=== PATIENT | female | born 1955 | race Caucasian/White ===

== ENCOUNTER 2016-07-31 16:20 | Emergency (ER) | payer SELFPAY ==
[~2016-07-31] VITALS: Ht 154.9 cm; Wt 42.6 kg
[2016-07-31 16:30] VITALS: BP 137/89
[2016-07-31] MEDS ORDERED: SULF1TAB24 PO (16:43)
--- NOTE | 2016-07-31 16:43 | PHYS DOC ---
Past Medical History Past Medical History: COPD Past Surgical History: Hysterectomy Alcohol Use: Sober Drug Use: None Adult General Chief Complaint Chief Complaint: ELBOW PROBLEM [facility] HPI Patient is a 60 year old female presents to the emergency department with pain to the right elbow. Patient states she has had this for 2 weeks. She states it is hard and tender with no drainage from the site, family member tried to khushi the area without success. Area of tenderness is the side of a pea, slight redness noted no warmth noted. Patient with full ROM noted to the elbow. Review of Systems Review of Systems Constitutional: Denies fever or chills [] Eyes: Denies change in visual acuity, redness, or eye pain [] HENT: Denies nasal congestion or sore throat [] Respiratory: Denies cough or shortness of breath [] Cardiovascular: No additional information not addressed in HPI [] GI: Denies abdominal pain, nausea, vomiting, bloody stools or diarrhea [] : Denies dysuria or hematuria [] Musculoskeletal: Denies back pain or joint pain [] Integument: Denies rash or skin lesions. Pea size area to right elbow tender Neurologic: Denies headache, focal weakness or sensory changes [] Endocrine: Denies polyuria or polydipsia [] Allergies Allergies Allergies Coded Allergies Type Severity Reaction Last Updated Verified Penicillins Allergy Intermediate 07/31/16 Yes Physical Exam Physical Exam Constitutional: Well developed, well nourished, no acute distress, non-toxic appearance. [] HENT: Normocephalic, atraumatic, bilateral external ears normal, oropharynx moist, no oral exudates, nose normal. [] Eyes: PERRLA, EOMI, conjunctiva normal, no discharge. [] Neck: Normal range of motion, no tenderness, supple, no stridor. [] Cardiovascular:Heart rate regular rhythm, no murmur [] Lungs & Thorax: Bilateral breath sounds clear to auscultation [] Skin: Warm, dry, no erythema, no rash. Right elbow with a pea size area that is encapsulated and moveable tenderness noted, slight redness noted no warmth noted Back: No tenderness Extremities: No tenderness, no cyanosis, no clubbing, ROM intact, no edema. [] Neurologic: Alert and oriented X 3, normal motor function, normal sensory function, no focal deficits noted. [] Psychologic: Affect normal, judgement normal, mood normal. [] Current Patient Data Vital Signs Vital Signs Date Time Temp Pulse Resp B/P (MAP) Pulse Ox O2 Delivery O2 Flow Rate FiO2 07/31/16 16:30 98.3 106 18 91 Room Air 98.3 EKG EKG [] Radiology/Procedures Radiology/Procedures [] Course & Med Decision Making Course & Med Decision Making Pertinent Labs and Imaging studies reviewed. (See chart for details) Patient has a history of COPD and has not wore oxygen for the last 2 years. Patient states she moved here 2 years and has not found a doctor. Denies SOA, patient continues to smoke. Patient will be discharged with bactrim. Recommended warm moist packs to right elbow 4 times a day for 20 minutes at a time. Recommended followup with PCP or return to emergency for re-evaluation in 3 days.Signs and symptoms to return to emergency department has been provided. Patient will be provided with doctor list. [] Dragon Disclaimer Dragon Disclaimer This electronic medical record was generated, in whole or in part, using a voice recognition dictation system. Departure Departure Impression: Primary Impression: Abscess Disposition: 01 HOME, SELF-CARE Condition: STABLE Patient Instructions: Abscess Additional Instructions: Activity as tolerated Medication as prescribed Tylenol or Ibuprofen for pain and discomfort Warm moist soaks to the elbow 4 times a day for 20 minutes at a time Followup with primary care provider in 3-5 days Return to emergency department as needed for signs and symptoms that become worse Scripts Sulfamethoxazole/Trimethoprim (BACTRIM DS TABLET) 1 Each Tablet 1 TAB PO BID, #20 TAB Prov: CATRACHITA BEY APRN 07/31/16 CATRACHITA BEY APRN July 31, 2016 16:43
== END 2016-07-31 16:50 | disposition home or self-care (01) ==
LOC: ER 16:20
DX: L02.413 Cutaneous abscess of right upper limb (principal); J44.9 Chronic obstructive pulmonary disease, unspecified; Z88.0 Allergy status to penicillin
CPT/HCPCS: 99283

== ENCOUNTER 2017-07-31 12:18 | Emergency (ER) | payer SELFPAY ==
[2017-07-31] MEDS: predniSONE 20 MG TABLET PO (13:11)
[2017-07-31] MEDS: BENZONATATE 100 MG CAPSULE. PO (13:12)
[2017-07-31] MEDS: IPRATRPIUM/ALBUTEROL 0.5/2.5MG 3 ML NEBU. NEB ×2 (13:34→13:57)
[2017-07-31] MEDS ORDERED: IPRATRPIUM/ALBUTEROL 0.5/2.5MG 3 ML NEBU. NEB (14:30)
== END 2017-07-31 14:33 | disposition left against medical advice (07) ==
LOC: ER 14:33
DX: J44.1 Chronic obstructive pulmonary disease with (acute) exacerbation (principal); J20.9 Acute bronchitis, unspecified; J02.9 Acute pharyngitis, unspecified; F17.210 Nicotine dependence, cigarettes, uncomplicated; Z90.710 Acquired absence of both cervix and uterus; Z53.29 Procedure and treatment not carried out because of patient's decision for other reasons
CPT/HCPCS: 71046; 94640; 99284; J7512; J7620

== ENCOUNTER 2017-11-06 01:05 | Emergency (ER) | payer SELFPAY ==
[~2017-11-06] VITALS: Ht 154.9 cm; Wt 40.4 kg
[~2017-11-06 01:05] MED LIST: AZIT250T PO; BENZ100C PO; PRED50TA PO; SULF1TAB24 PO; VENTOLIN HFA18 GM INH
[2017-11-06 02:16] LABS: BASO # 0.1 x10^3/uL (0.0-0.2); BASO % 1 % (0-3); EOS # 0.1 x10^3/uL (0.0-0.7); EOS % 1 % (0-3); HEMATOCRIT 42.6 % (36.0-47.0); HEMOGLOBIN 14.6 g/dL (12.0-15.5); LYMPH # 1.9 x10^3/uL (1.0-4.8); LYMPH % 20 % (24-48); MEAN CORPUSCULAR HEMOGLOBIN 32 pg (25-35); MEAN CORPUSCULAR HGB CONC 34 g/dL (31-37); MEAN CORPUSCULAR VOLUME 94 fL (79-100); MONO # 0.5 x10^3/uL (0.0-1.1); MONO % 5 % (0-9); NEUT % 73 % (31-73); PLATELET COUNT 204 x10^3/uL (140-400); RED BLOOD COUNT 4.53 x10^6/uL (3.50-5.40); RED CELL DISTRIBUTION WIDTH 13.2 % (11.5-14.5); WHITE BLOOD COUNT 9.5 x10^3/uL (4.0-11.0)
[2017-11-06 02:29] LABS: CALCIUM 8.9 mg/dL (8.5-10.1); CREATININE 0.8 mg/dL (0.6-1.0); GFR 72.4; POTASSIUM 3.7 mmol/L (3.5-5.1)
[2017-11-06] MEDS ORDERED: ALBU2.5V5 NEB (02:34)
[2017-11-06 02:35] LABS: ALBUMIN 3.7 g/dL (3.4-5.0); ALBUMIN/GLOBULIN RATIO 1.1 (1.0-1.7); TOTAL BILIRUBIN 0.4 mg/dL (0.2-1.0)
[2017-11-06 02:57] VITALS: BP 129/86
--- NOTE | 2017-11-06 03:00 | PHYS DOC ---
Past Medical History Past Medical History: COPD, Hypertension Past Surgical History: Hysterectomy Alcohol Use: Sober Drug Use: None Adult General Chief Complaint Chief Complaint: HIP PAIN HPI HPI Patient is a 62 year old female brought in by ambulance with hip pain. She landed on her right hip because a cat jumped at her and she fell down. Mild elbow pain no head trauma no loss of consciousness no chest pain symptoms are moderate worsening with time Review of Systems Review of Systems Constitutional: Denies fever or chills [] Eyes: Denies change in visual acuity, redness, or eye pain [] CHRONIC SOB Cardiovascular: No additional information not addressed in HPI [] GI: Denies abdominal pain, nausea, vomiting, bloody stools or diarrhea [] Neurologic: Denies headache, focal weakness or sensory changes [] Endocrine: Denies polyuria or polydipsia [] All other systems were reviewed and found to be within normal limits, except as documented in this note. Allergies Allergies Allergies Coded Allergies Type Severity Reaction Last Updated Verified Penicillins Allergy Intermediate 07/31/16 Yes Physical Exam Physical Exam Constitutional: Well developed, well nourished, no acute distress, non-toxic appearance. [] HENT: Normocephalic, atraumatic, bilateral external ears normal, oropharynx moist, no oral exudates, nose normal. [] Eyes: PERRLA, EOMI, conjunctiva normal, no discharge. [] Neck: Normal range of motion, no tenderness, supple, no stridor. [] Cardiovascular:Heart rate regular rhythm, no murmur [] Lungs & Thorax: Bilateral breath sounds clear to auscultation [] Abdomen: Bowel sounds normal, soft, no tenderness, no masses, no pulsatile masses. [] Skin: Warm, dry, no erythema, no rash. [] Back: No tenderness, no CVA tenderness. EXT [] TTP NOTED RIGHT HIP NO DEFORMITY PULSE INTACT IN THAT FOOT. ABRASION ELBOW FULL ROM. Neurologic: Alert and oriented X 3, normal motor function, normal sensory function, no focal deficits noted. [] Psychologic: Affect normal, judgement normal, mood normal. [] Current Patient Data Vital Signs Vital Signs Date Time Temp Pulse Resp B/P (MAP) Pulse Ox O2 Delivery O2 Flow Rate FiO2 11/06/17 01:06 98.1 97 20 166/83 (110) 91 Room Air 98.1 Lab Values Laboratory Tests Test 11/06/17 02:00 White Blood Count 9.5 x10^3/uL (4.0-11.0) Red Blood Count 4.53 x10^6/uL (3.50-5.40) Hemoglobin 14.6 g/dL (12.0-15.5) Hematocrit 42.6 % (36.0-47.0) Mean Corpuscular Volume 94 fL (79-100) Mean Corpuscular Hemoglobin 32 pg (25-35) Mean Corpuscular Hemoglobin Concent 34 g/dL (31-37) Red Cell Distribution Width 13.2 % (11.5-14.5) Platelet Count 204 x10^3/uL (140-400) Neutrophils (%) (Auto) 73 % (31-73) Lymphocytes (%) (Auto) 20 % (24-48) L Monocytes (%) (Auto) 5 % (0-9) Eosinophils (%) (Auto) 1 % (0-3) Basophils (%) (Auto) 1 % (0-3) Neutrophils # (Auto) 7.0 x10^3uL (1.8-7.7) Lymphocytes # (Auto) 1.9 x10^3/uL (1.0-4.8) Monocytes # (Auto) 0.5 x10^3/uL (0.0-1.1) Eosinophils # (Auto) 0.1 x10^3/uL (0.0-0.7) Basophils # (Auto) 0.1 x10^3/uL (0.0-0.2) Sodium Level 140 mmol/L (136-145) Potassium Level 3.7 mmol/L (3.5-5.1) Chloride Level 106 mmol/L (98-107) Carbon Dioxide Level 29 mmol/L (21-32) Anion Gap 5 (6-14) L Blood Urea Nitrogen 16 mg/dL (7-20) Creatinine 0.8 mg/dL (0.6-1.0) Estimated GFR (Cockcroft-Gault) 72.4 BUN/Creatinine Ratio 20 (6-20) Glucose Level 157 mg/dL (70-99) H Calcium Level 8.9 mg/dL (8.5-10.1) Total Bilirubin 0.4 mg/dL (0.2-1.0) Aspartate Amino Transferase (AST) 17 U/L (15-37) Alanine Aminotransferase (ALT) 24 U/L (14-59) Alkaline Phosphatase 81 U/L (46-116) Total Protein 7.0 g/dL (6.4-8.2) Albumin 3.7 g/dL (3.4-5.0) Albumin/Globulin Ratio 1.1 (1.0-1.7) Laboratory Tests 11/06/17 02:00 Laboratory Tests 11/06/17 02:00 EKG EKG [] Radiology/Procedures Radiology/Procedures [] Impressions: MY READ NEG ACUTE Course & Med Decision Making Course & Med Decision Making Pertinent Labs and Imaging studies reviewed. (See chart for details) 62-year-old female presenting with hip pain after a mechanical fall x-rays read by me as negative patient ambulated in the emergency room quite well without any assistance just mild limp only reassurance provided Tylenol for pain Dragon Disclaimer Dragon Disclaimer This electronic medical record was generated, in whole or in part, using a voice recognition dictation system. Departure Departure Impression: Primary Impression: Contusion, hip Disposition: 01 HOME, SELF-CARE Condition: STABLE Patient Instructions: Hip Injury Scripts Albuterol Sulfate (ALBUTEROL SULFATE NEB SOLN) 2.5 Mg/3 Ml Vial.neb 1 VIAL NEB PRN Q4HRS, #50 VIAL Prov: JOHNATHAN HENSON MD 11/06/17 JOHNATHAN HENSON MD Nov 06, 2017 03:00
--- NOTE | 2017-11-06 04:24 | RAD ---
Right hip AP lateral x-rays with AP pelvis x-ray HISTORY: Right hip pain, trauma. FINDINGS: No fracture or dislocation of the right hip. No arthritic change. The soft tissues are unremarkable. IMPRESSION: No acute osseous injury. Electronically signed by: Jason Gerard MD (11/06/2017 4:21 AM) [id number]
== END 2017-11-06 03:03 | disposition home or self-care (01) ==
LOC: ER 01:05
DX: S70.01XA Contusion of right hip, initial encounter (principal); S50.319A Abrasion of unspecified elbow, initial encounter; J44.9 Chronic obstructive pulmonary disease, unspecified; I10 Essential (primary) hypertension; Z90.710 Acquired absence of both cervix and uterus; Z88.0 Allergy status to penicillin; W18.31XA Fall on same level due to stepping on an object, initial encounter; Y93.89 Activity, other specified; Y92.89 Other specified places as the place of occurrence of the external cause; Y99.8 Other external cause status
CPT/HCPCS: 36415; 73502; 80053; 85025; 85610; 99285-25